=== PATIENT | male | born 2000 | race Two or more races ===

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

== ENCOUNTER 2022-03-26 09:39 | Outpatient (CLI) | payer OTHER ==
[2022-03-26 10:32] VITALS: BP 116/88
--- NOTE | 2022-03-26 10:32 | SLEEP CARE CONSULTATION ---
Information from patient questionnaire entered by Geo Cordova. I have reviewed and concur with the information entered by Geo Cordova. This document represents the service I personally performed and the decisions made by me, Chantel Fraser MD, [facility]. History of Present Illness Service Date and Time: 03/26/2022 0939 Reason for Visit: New patient Chief Complaint: reports: Frequent awakenings at night, Other (SITTING UP AT NIGHT) Date of Onset: June Usual bedtime: 10PM Time it takes to fall asleep: AN HOUR + Snores at night: Yes Observed to quit breathing while asleep: No Sleeps alone due to snoring: No Number of times waking at night: 2+ Reasons for waking at night: reports: Bathroom, Other (UNKNOWN REASON ) Toss, Turn, or Twitch while sleeping: Yes Recalls having dreams: Yes Usually gets out of bed at: 530AM Feels refreshed in the morning: No Morning headache: No Sleepy or fatigued during the day: No Ever fallen asleep while driving: No Takes day naps: No Dreams during day naps: Yes Prior sleep studies: No Additional HPI information: I had the pleasure of seeing Mr. Major today regarding the possibility of him having a sleep disorder. As you know, he is a 22-year-old gentleman who complains of frequent awakenings and sitting up while asleep as witnessed by his roommate. The patient tells me that he normally goes to bed around 10 pm, and it takes him approximately 60 minutes to fall asleep. He has been told that he occasionally snores loudly at night. He has never been observed to stop breathing in his sleep. He can recall waking up on the average of 2 - 3 times during the night. Most of the time he wakes up because of having to use the bathroom and no apparent reason. There is a lot of tossing and turning in his sleep. No somniloquy (sleep talking) or somnambulism (sleep walking). Generally, he can recall having dreams. In the morning he usually gets up out of the bed around 5:30 a.m. feeling refreshed and rested. He usually does not have a morning headache. During the day he does not feel sleepy or fatigued. His score on [place] Sleepiness Scale is 9 out of 24. He never has fallen aslee p while driving nor has had any accident due to sleepiness. He usually does not take naps during the day. Upon falling asleep during the day he admits to having vivid dreams. He has never had sleep paralysis, experienced cataplexy or symptoms of restless leg syndrome. He denies having impaired concentration during the day. - Parasomnia Symptoms Ever been unable to move upon waking from sleep: No Walks in sleep: No Talks in sleep: No Ever acted out dreams in sleep: No Ever felt weak in the knees when startled or emotional: No Bothered by creepy, crawly, restless sensations in legs: No Problems with memory or concentration: No Subjective Initial [place] Sleepiness Scale score: 9 (03/26/22) Social History The patient's occupation is a [employer]. Patient is Single and lives in . Have you smoked in the past 12 months: No Alcohol use: Yes Alcohol amount and frequency: 1-2 BEERS, ONCE EVERY 2-3 WEEKS Caffeine use: Yes Caffeine amount and frequency: 1 CAN, EVERY 4-5 DAYS Family History Family history of sleep disordered breathing: No Allergies and Home Medications Known drug allergies: No Drug allergies reviewed: Yes Home medication list reviewed: Yes Review of Systems Cardiovascular: denies: high blood pressure, palpitations, chest pain, irregular heart rate or pulse, leg or foot swelling, have to sleep sitting up, other Respiratory: denies: shortness of breath, wheeze, sputum production, chronic cough, other Gastrointestinal: denies: heartburn, difficulty swallowing, nausea, vomitting, diarrhea, abdominal pain, other Urinary: denies: incontinence, frequency, urgency, impotence, other Neurological: denies: headaches, seizure, head trauma, disorientation, speech dysfunction, gait or balance problems, fainting or unconsciousness, other Psychiatric: denies: Attention Deficit Hyperactivity, anxiety, depression, mood disorder, claustrophobia, other Ear/Nose/Throat: reports: wisdom teeth removed Endocrine: denies: thyroid disease, history of goiter, sluggishness, too hot or cold, excessive thirst, increased appetite, increased urination, unexplained weakness, other Musculoskeletal: denies: joint pain, neck pain, back pain, joint swelling, muscle pain or cramping, mobility problems, other Immunologic: denies: sneezing, rash, itching, allergies to food or environment, other Physical Exam Vital signs obtained and entered by: KHADIJAH KENNEY Blood Pressure: 116/88 (LEFT ARM ) Cuff size: regular Heart Rate: 75 O2 Saturation: 97 Height: 5 ft 10 in Weight: 203 lb Body Mass Index: 29.1 BMI Classification: Overweight Neck circumference: 16.5 (INCHES ) Mood/affect: normal HEENT: No craniofacial malformation Nostrils: patent to airflow Turbinates: normal Septum: midline Mouth and throat: normal Soft palate: normal Hard palate: normal Uvula: normal Uvula visualization: 100% Mallampati Class I Tongue: normal in size Tonsils: small Chin and jaw: normal size and position Neck: normal w/o lymphadenopathy or thyromegaly Heart: regular rate and rhythm Lungs: clear bilaterally Abdomen: soft, non-tender Extremities: no edema or clubbing Neurologic: intact, no focal deficits Impression and Plan IMPRESSION: 1. 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 This is not too uncommon in a young individual. So far, he has not sustained any injuries. He has not left the bed in his sleep. The parasomnia can be aggravated by sleep deprivation and alcohol use. He agrees that overall, he might have been getting less sleep this year. Plan: 1. Schedule polysomnography with parasomnia montage. 2. Return for follow up after the sleep study. Follow up with Sleep Care in: 1-2 months Visit Type: In Office Time Spent with Patient (minutes): 15 Provider Statement: I spent 100% of the Face to Face Visit with the patient with greater than 50% spent counseling the patient and coordination of care.
== END 2022-03-26 09:40 | disposition home or self-care (01) ==
LOC: SC 09:39
PROVIDERS: ATTEND Internal Medicine Pulmonary Disease
DX: G47.8 Other sleep disorders (principal); F51.3 Sleepwalking [somnambulism]
CPT/HCPCS: 99202; 99212

== ENCOUNTER 2022-06-13 19:29 | Outpatient (CLI) | payer OTHER | END 2022-06-13 19:30 | disposition home or self-care (01) | LOC: SC 19:29 | PROVIDERS: ATTEND Internal Medicine Pulmonary Disease | DX: G47.8 Other sleep disorders (principal); F51.3 Sleepwalking [somnambulism] | CPT/HCPCS: 95810 ==

== ENCOUNTER 2022-07-02 13:02 | Outpatient (CLI) | payer OTHER ==
[2022-07-02 18:46] VITALS: BP 124/72
--- NOTE | 2022-07-02 18:46 | SLEEP CARE CONSULTATION ---
Information from patient questionnaire entered by Divya Douglas. I have reviewed and concur with the information entered by Divya Douglas. This document represents the service I personally performed and the decisions made by me, Chantel Fraser MD, [facility]. History of Present Illness Service Date and Time: 07/02/2022 1302 Initial [place] Sleepiness Scale score: 9 (03/26/22) Current [place] Sleepiness Scale score: 9 (07/02/22) Additional HPI information: Mr. Major returned for follow up of the sleep study he had on 06/13/2022. The polysomnography showed that the patient had normal sleep efficiency. The sleep architecture was normal as well. Respiratory monitoring showed no significant sleep disordered breathing (AHI = 0.7) associated with frequent arousals, oxyhemoglobin desaturation and no significant hypoxia (fritz oxygen saturation of 92%). The patient slept mostly supine (supine AHI = 0.8; non- supine = 0.47). Snore was light to moderate in intensity. There was no sign ificant periodic leg movement of sleep. Cardiac rhythm was normal sinus rhythm without significant arrhythmia. No abnormal behavior (parasomnia) observed during the night. Sleep Study - Results Type of Sleep Study: Polysomnography (COMPLETED 06-13-22) Prior sleep studies: No Allergies and Home Medications Drug allergies reviewed: Yes Home medication list reviewed: Yes Review of Systems Review of systems same as previous: Yes Physical Exam Vital signs obtained and entered by: DIVYA Stevenson MA Blood Pressure: 124/72 (LEFT ARM) Cuff size: regular Heart Rate: 78 O2 Saturation: 97 Height: 5 ft 10 in Weight: 212 lb 6.4 oz Body Mass Index: 30.4 BMI Classification: Obese Impression and Plan IMPRESSION: 1. Parasomnia, involving sleep walking, most likely a non-REM parasomnia which is not too uncommon in young adults. So far, there has not been any injury. I advised the patient to make his bedroom environment safe. Medication is not indicated at this time. He should avoid sleep deprivation. PLAN: 1. Keep bedroom environment safe. 2. Return if the sleep walking causes injuries to him or his bedpartner. Follow up with Sleep Care in: as needed Visit Type: In Office Time Spent with Patient (minutes): 15 Provider Statement: I spent 100% of the Face to Face Visit with the patient with greater than 50% spent counseling the patient and coordination of care.
== END 2022-07-02 13:03 | disposition home or self-care (01) ==
LOC: SC 13:02
PROVIDERS: ATTEND Nurse Practitioner Family
DX: G47.50 Parasomnia, unspecified (principal); E66.9 Obesity, unspecified; Z68.30 Body mass index [BMI] 30.0-30.9, adult
CPT/HCPCS: 99212